=== PATIENT | male | born 1955 | race Caucasian/White ===

== ENCOUNTER 2018-11-12 04:32 | Observation (INO) | payer OTHER ==
[2018-11-12] MEDS ORDERED: ACETAMINOPHEN 325 MG TAB PO (06:00)
[2018-11-12] MEDS ORDERED: GLUCAGON 1 MG INJ IM (06:00)
[2018-11-12] MEDS ORDERED: GLUCOSE GEL 15 GRAM TUBE BUCCAL (06:00)
[2018-11-12] MEDS ORDERED: ONDANSETRON 4 MG INJ IV (06:00)
[2018-11-12] MEDS ORDERED: GLUCOSE GEL 15 GRAM TUBE PO ×2 (06:00)
[2018-11-12] MEDS ORDERED: NACL 0.9% 3 ML SYG IV (06:00)
[2018-11-12] MEDS ORDERED: DEXTROSE 50% 50 ML SYRINGE IV ×2 (06:00)
[2018-11-12 06:29] LABS: ADD MAN DIFF? NO
[2018-11-12 06:34] LABS: BASOPHILS % 0.4 % (0.0-2.0); EOSINOPHILS # 0.1 10^3/ul (0.0-0.5); EOSINOPHILS % 1.9 % (0.0-7.0); HEMOGLOBIN 12.3 g/dl (14.0-18.0); LYMPHOCYTES # 1.4 10^3/ul (0.8-2.9); MEAN CORPUSCULAR HEMOGLOBIN 31.1 pg (29.0-33.0); MEAN CORPUSCULAR HGB CONC 34.2 g/dl (32.0-37.0); MEAN CORPUSCULAR VOLUME 90.9 fl (82.0-101.0); MONOCYTE # 0.6 10^3/ul (0.3-0.9); MONOCYTES % 8.6 % (0.0-11.0); NEUTROPHILS % 68.8 % (39.0-77.0); PLATELET COUNT 272 10^3/UL (140-415); RED BLOOD COUNT 3.96 10^6/ul (4.70-6.10); RED CELL DISTRIBUTION WIDTH 11.8 % (11.5-14.5)
[2018-11-12 06:34] LABS: WHITE BLOOD COUNT 7.2 10^3/ul (4.8-10.8)
[2018-11-12 07:10] LABS: ALANINE AMINOTRANSFERASE 22 IU/L (13-69); ALBUMIN 4.3 g/dl (3.3-4.9); ALBUMIN/GLOBULIN RATIO 0.93; ALKALINE PHOSPHATASE 121 IU/L (42-121); ANION GAP 12 (5-13); ASPARTATE AMINO TRANSFERASE 49 IU/L (15-46); BILIRUBIN,INDIRECT 0.1 mg/dl (0-1.1); BILIRUBIN,TOTAL 0.1 mg/dl (0.2-1.3); BLOOD UREA NITROGEN 5 mg/dl (7-20); CALCIUM 8.9 mg/dl (8.4-10.2); CARBON DIOXIDE 27 mmol/L (21-31); CHLORIDE 102 mmol/L (97-110); CREATININE 0.64 mg/dl (0.61-1.24); Estimated GFR > 60 mL/min (>60); GLUCOSE 271 mg/dl (70-220); MAGNESIUM 1.9 mg/dl (1.7-2.5); POTASSIUM 4.2 mmol/L (3.5-5.1); SODIUM 141 mmol/L (135-144); TOTAL PROTEIN 8.9 g/dl (6.1-8.1)
[2018-11-12 07:24] LABS: CHOLESTEROL 188 mg/dl (100-200)
[2018-11-12 07:24] LABS: CHOL/HDL RATIO 3.8 RATIO; HDL CHOLESTEROL 49 mg/dl (30-78); LDL CHOLESTEROL,CALCULATED 96 mg/dl; TRIGLYCERIDES 216 mg/dl (0-149)
[2018-11-12] MEDS ORDERED: LORAZEPAM 2 MG INJ IV (07:30)
[2018-11-12 07:49] LABS: HEMOGLOBIN A1C 11.8 % (0-5.9)
[2018-11-12] MEDS: INSULIN ASPART [NOVOLOG] 3 ML PEN SC ×4 (07:51→19:49)
[2018-11-12] MEDS: FOLIC ACID 1 MG TAB PO (08:40)
[2018-11-12] MEDS: MULTIVITAMINS THERAPEUTIC TAB PO (08:41)
[2018-11-12] MEDS ORDERED: THIAMINE 200 MG INJ IV (09:00)
[2018-11-12] MEDS: THIAMINE 200 MG in SOD CHLORIDE 0.9% 100 ML IV (09:51)
[2018-11-12] MEDS: metFORMIN 500 MG TAB PO ×2 (12:29→17:24)
[2018-11-12] MEDS: GLIMEPIRIDE 2 MG TAB PO (12:30)
[2018-11-13] MEDS: ACCU-CHEK XX (02:00)
[2018-11-13] MEDS: GLIMEPIRIDE 2 MG TAB PO (07:52)
[2018-11-13] MEDS: MULTIVITAMINS THERAPEUTIC TAB PO (07:52)
[2018-11-13] MEDS: FOLIC ACID 1 MG TAB PO (07:52)
[2018-11-13] MEDS: metFORMIN 500 MG TAB PO ×2 (07:52→16:54)
[2018-11-13] MEDS: THIAMINE 200 MG in SOD CHLORIDE 0.9% 100 ML IV (07:54)
[2018-11-13] MEDS: INSULIN ASPART [NOVOLOG] 3 ML PEN SC ×4 (07:55→19:46)
[2018-11-14] MEDS: ACCU-CHEK XX (02:00)
[2018-11-14] MEDS: GLIMEPIRIDE 2 MG TAB PO ×2 (06:05→07:40)
[2018-11-14] MEDS: metFORMIN 500 MG TAB PO (07:40)
[2018-11-14] MEDS: FOLIC ACID 1 MG TAB PO (07:40)
[2018-11-14] MEDS: THIAMINE 200 MG in SOD CHLORIDE 0.9% 100 ML IV (07:40)
[2018-11-14] MEDS: MULTIVITAMINS THERAPEUTIC TAB PO (07:40)
[2018-11-14] MEDS: INSULIN ASPART [NOVOLOG] 3 ML PEN SC ×2 (07:58→11:53)
== END 2018-11-14 14:00 | disposition home or self-care (01) ==
LOC: 6WM 04:32
PROVIDERS: Family Medicine
DX: R55 Syncope and collapse (principal); E11.9 Type 2 diabetes mellitus without complications; I10 Essential (primary) hypertension; F10.10 Alcohol abuse, uncomplicated; Y90.0 Blood alcohol level of less than 20 mg/100 ml; E11.65 Type 2 diabetes mellitus with hyperglycemia; Z79.4 Long term (current) use of insulin; E86.0 Dehydration; E87.1 Hypo-osmolality and hyponatremia
CPT/HCPCS: 71045; 80053; 80061; 80307; 82306; 82962; 83036; 83735; 84443; 85025; 93005; 93306; 93880; 99217; G0378